=== PATIENT | male | born 1980 | race Caucasian/White ===

== ENCOUNTER 2024-12-11 09:11 | Emergency (ER) | payer OTHER, SELFPAY ==
[2024-12-11 09:17] VITALS: BP 128/94
--- NOTE | 2024-12-11 09:30 | ED.GENMED ---
History of Present Illness
General
Chief Complaint: Abdominal Pain
Time Seen by Provider: 12/11/24 09:28
History of Present Illness
History of Present Illness:
TIME OF INITIAL EVALUATION
- 9:30 AM
REVIEW OF OLD RECORDS
- I reviewed records, the patient has a history of kidney stones.
CHIEF COMPLAINT(S)
Abdominal pain.
HISTORY OF PRESENT ILLNESS
The patient is a 44-year-old male with a history of kidney stones, presenting with abdominal pain. He reports that the pain started yesterday and intensified throughout the day, resembling labor pain in character�it would fluctuate in intensity and
location. The patient describes the pain as across the front of the abdomen, subdermal, mildly more pronounced on the right side, and accompanied by uncomfortable bloating and belching. He denies any nausea, vomiting, or fever.
The patient mentioned that he attempted to pass bowel movements and, while in the ER, had a bowel movement consisting mostly of fluid with green particles. He denies any changes in bowel habits such as blood in stools.
He recalls a past occurrence of testicular pain linked to kidney stones, but he denies similar pain currently. The patient has not vomited and does not report nausea, though he expressed apprehension about eating due to potential exacerbation of
symptoms.
PHYSICAL EXAM
General: Alert, no significant distress.
Skin: Warm, dry.
Head: Normocephalic, atraumatic.
Neck: Supple, trachea midline.
Eye Ears, Nose, Mouth and Throat: Oral mucosa moist.
Cardiovascular: Normal peripheral perfusion, No edema.
Respiratory: Respirations are non-labored.
Gastrointestinal: Minimal distention diffusely, minimal diffuse tenderness slightly more so on the right
Back: Normal range of motion, Normal alignment.
Musculoskeletal: Normal range of motion, normal strength.
Neurological: Alert and oriented to person, place, time, and situation, No focal neurological deficit observed.
Psychiatric: Cooperative, appropriate mood and affect.
PLAN
1. Perform CT scan of the abdomen with oral and IV contrast to evaluate the gastrointestinal tract.
2. Administer intravenous fluids to address any dehydration.
3. Administer Toradol (ketorolac) for pain management, given the history of non-response to gtzc-llf-jrjncdp medications.
4. Arrange a follow-up discussion with the patient after imaging and lab results are available.
DIFFERENTIAL DIAGNOSIS
The Differential Diagnosis includes, in no particular order and is not limited to:
1. Abdominal hernia
2. Acute pancreatitis
3. Intestinal obstruction
4. Cholecystitis
5. Nephrolithiasis (kidney stones)
6. Peptic ulcer disease
7. Appendicitis
8. Gastritis
9. Irritable bowel syndrome
10. Colon cancer
RADIOLOGY
- CT shows some fluid-filled loops of small bowel which are nondistended
LABS
- CBC and chemistries unremarkable however the bicarb is noted to be 17, urinalysis shows no sign of infection and no ketones
UPDATE
-12/11/24 - 10:34
Bicarbonate level is slightly low, suggesting possible dehydration. Patient is receiving intravenous fluids and is focusing on maintaining oral hydration.
SUMMARY OF ENCOUNTER
The patient, a 44-year-old male with a history of kidney stones, presented to the emergency department with abdominal pain which he described as resembling labor pain, fluctuating in intensity and accompanied by bloating and belching. The CT scan
showed signs of enteritis, which suggested gastroenteritis, possibly due to a viral illness or food poisoning. There were no signs of obstruction or significant findings that required surgical intervention. His bicarbonate level was slightly low,
suggesting mild dehydration. Intravenous fluids and a dose of ketorolac were administered for pain management. The patients symptoms were not deemed severe or life-threatening, and no further invasive intervention was necessary.
DISPOSITION
Discharge.
ASSESSMENT
The clinical presentation and CT findings are indicative of gastroenteritis. The condition appears to be mild, consistent with viral gastroenteritis or food poisoning. The low bicarbonate levels indicate dehydration, most likely due to the
gastrointestinal symptoms.
EMERGENCY TREATMENTS ADMINISTERED
Ketorolac was administered for pain management and intravenous fluids were provided to address dehydration.
PLAN
The plan includes discharging the patient with instructions to maintain hydration and eat slowly upon returning home. Ehli-vhh-hzxyxqk ibuprofen is recommended for any pain management instead of prescribing ketorolac for home use.
INDEPENDENT REVIEW OF LABS AND INTERPRETATION OF TESTS
My independent review indicates a slightly low bicarbonate level, consistent with dehydration. The CT scan indicated signs of enteritis but no obstruction or signs requiring surgical intervention.
PATIENT EDUCATION AND COUNSELING
The patient was educated about the likely viral nature of his condition and advised on the importance of staying hydrated. He was advised to eat slowly as he reintroduces solid food, and informed that nbsn-rla-iihrdez ibuprofen can be used for pain
management if necessary.
MEDICATION RECONCILIATION
Ketorolac was administered during the visit. Instructions were provided to the patient to use ibuprofen for pain management after discharge if needed.
MEDICAL DECISION MAKING
- Number and Complexity of Problems Addressed: Chronic conditions affecting care include the patients history of kidney stones and current signs of gastroenteritis.
- Data:
- Category 1: My independent interpretation of the CT scan indicates enteritis but no obstruction or surgical intervention needs.
- Category 2: None mentioned.
- Category 3: None mentioned.
- Risk: Consideration of Admission/Observation: Escalation of care including admission/observation was considered given the complexity and risk of the patients presenting complaint, exam findings, and his underlying condition of kidney stones.
However, ultimately I feel the patient is safe for outpatient management with close follow-up. Reasoning: Work-up reassuring, does not reveal any acute life/organ threatening processes, patients symptoms well controlled upon reevaluation,
reexamination is reassuring, vitals are stable, patient agreeable with discharge, reliable for follow-up.
DIAGNOSIS
- Gastroenteritis, unspecified (ICD-10: A09)
- Dehydration (ICD-10: E86.0)
Phy Exam
Physical Exam
Physical Exam:
See HPI
Course
Orders/Labs/Results
Orders:
Orders
12/11/24 09:37
STOOL [C difficile Antigen & Toxins] Urgent
ELTON Source: Feces/Stool
Specimen Description:
Stool Culture Urgent
ELTON Source: Feces/Stool
Specimen Description:
0.9% Sodium Chloride 1000 ml [Nss] 1,000 ml IV BOLUS
Iohexol [Omnipaque] See Protocol PO NOW STA
12/11/24 09:38
CT Abd/pel W Iv And Oral Contr Urgent
Comment:
Reason For Exam: diffuse pain; some loose stool
12/11/24 09:43
Complete Blood Count/With Diff Urgent
Comprehensive Metabolic Panel Urgent
Lipase Urgent
12/11/24 09:52
Ketorolac [Toradol] 15 mg .ROUTE .STK-MED ONE
12/11/24 09:55
Ketorolac [Toradol] 15 mg IV NOW STA
12/11/24 11:15
Urinalysis Reflex To Culture Urgent
Date Specimen was Collected: 12/11/24
Time Specimen was Collected: 11:13
Urine Microscopic Reflex Cult Urgent
Abnormal Lab Results
12/11/24 12/11/24
09:43 11:15
Absolute Monos (auto) 1.2 H 10^3/uL
(0.1-0.6)
Lymphocytes % 20.2 L %
(20.5-51.1)
Monocytes % 12.1 H %
(1.7-9.3)
Chloride 108 H mmol/L
(98-107)
Carbon Dioxide 17 L mmol/L
(22-30)
Glucose 108 H mg/dl
(70-99)
Total Protein 8.3 H g/dl
(6.3-8.2)
Ur Occult Blood Reflex 2+ A
(Negative)
Urine RBC 3-6 A /HPF
(0-2)
Urine Bacteria (Reflex) Few A
(Negative)
12/11/24 09:43
12/11/24 09:43
Vital Signs
Initial and Last Documented VS:
Initial Vital Signs
Temp Pulse Resp BP Pulse Ox
36.7 C 83 16 128/94 99
12/11/24 09:17 12/11/24 09:17 12/11/24 09:17 12/11/24 09:17 12/11/24 09:17
Last Documented Vital Signs
Temp Pulse Resp BP Pulse Ox
36.7 C 73 16 123/88 98
12/11/24 09:17 12/11/24 10:41 12/11/24 10:41 12/11/24 11:00 12/11/24 10:41
*Pulse Oximetry
SaO2: 99
Oxygen Mode of Delivery: Room air
Patient hypoxic: no
*Critical Care Note
Total Time (30-74mins, 75-104mins- exclusive of procedures): Not Applicable
ED Attending Note
-
Portions of this chart may have been created with voice recognition software.� Occasional wrong word or��sound alike� substitutions may have occurred due to the inherent limitations of voice recognition software.
Discharge Plan
Departure
Patient Disposition: Home (Routine Discharge)
Date of Disposition: 12/11/24
Time of Disposition: 13:13
Patient with high blood pressure during this ER visit?: Yes
Discharge Problem:
Enteritis
Instructions: Abdominal Pain
Referrals:
Aurora Sotelo NP [Family Provider, Family Practice]
Activity Restrictions/Additional Instructions:
Your white blood cell count is normal. Liver numbers and lipase numbers are normal. Your bicarbonate level is slightly low at 17 which is commonly seen with dehydration. We gave you IV fluids. There is no sign of a urinary tract infection. The
CAT scan shows signs of enteritis. There is no sign of obstruction or any serious etiology on imaging. Return here if worse or other concerns.
Interventions
Interventions:
*Risk Screen - Suicide Last Done: 12/11/24 09:17
*General Assessment Last Done: 12/11/24 09:56
*Neglect/Abuse Screening Last Done: 12/11/24 09:17
*ED- Fall Risk Assessment Last Done: 12/11/24 09:56
*ED COVID-19 Vaccine History Last Done: 12/11/24 09:56
FD-Wfzoov-Mrauihxbsv Assessment Last Done: 12/11/24 09:56
Discharge Date and Time
Print Language: MOROCCAN
[2024-12-11 09:36] VITALS: BMI 24.4
[2024-12-11] MEDS: OMNIPAQUE 50 ML PO (09:47)
[2024-12-11] MEDS: NSS 1000 IV (09:49)
[2024-12-11 09:53] LABS: Hematocrit 45.1 % (39.0-52.0); Hemoglobin 15.7 g/dL (13.0-18.0); Mean Corp Hgb Conc. 34.8 g/dL (33.0-37.0); Mean Corpuscular Volume 86.6 fL (80.0-94.0); Nucleated Red Blood Cells % 0 % (-); Platelet Count 330 10^3/uL (130-400); Red Cell Dist. Width 12.8 % (11.5-14.5)
[2024-12-11] MEDS: TORADOL 15 MG IV (09:55)
[2024-12-11 10:15] LABS: ALT (SGPT) 17 U/L (0-50); AST (SGOT) 23 U/L (17-59); Albumin 4.9 g/dl (3.5-5.0); Alkaline Phosphatase 58 U/L (38-126); Blood Urea Nitrogen 16 mg/dl (9-20); Calcium 10.1 mg/dl (8.4-10.2); Carbon Dioxide 17 mmol/L (22-30); Chloride 108 mmol/L (98-107); Estimated Creatinine Clearance 107 ml/min; Glucose 108 mg/dl (70-99); Lipase 173 U/L (23-300); Potassium 4.4 mmol/L (3.5-5.1); Sodium 135 mmol/L (135-145); Total Protein 8.3 g/dl (6.3-8.2); eGFR > 60.00
[2024-12-11 10:39] VITALS: BP 124/89
[2024-12-11 10:41] VITALS: BP 124/89
[2024-12-11 11:00] VITALS: BP 123/88
[2024-12-11 11:40] LABS: Urine Character Clear (Clear)
[2024-12-11 12:40] VITALS: BP 129/83
[2024-12-11 13:00] VITALS: BP 123/85
== END 2024-12-11 13:44 | disposition home or self-care (01) ==
LOC: EMR 09:11
PROVIDERS: EMERGENCY PHYSICIAN Emergency Medicine; FAMILY PHYSICIAN Nurse Practitioner Family
DX: K52.9 Noninfective gastroenteritis and colitis, unspecified (principal); Z87.442 Personal history of urinary calculi
CPT/HCPCS: 96374; 96361; 99284; 74177; 80053; 81003; 81015; 83690; 85025; Q9967